=== PATIENT | female | born 1985 | race Caucasian/White ===

== ENCOUNTER 2021-03-02 23:41 | Emergency (ER) | payer OTHER, BC ==
[~2021-03-02] VITALS: Ht 152.4 cm; Wt 63.0 kg
[2021-03-02] MEDS ORDERED: ACETAMINOPHEN 325MG TABLET PO STA (23:53)
[2021-03-02] MEDS ORDERED: MORPHINE SULFATE 4 MG/ML CPJ (NOT FOR IM USE) IV STA (23:53)
[2021-03-02] MEDS ORDERED: ONDANSETRON HCL 4MG/2ML INJ IV STA (23:53)
[2021-03-03] MEDS ORDERED: SODIUM CHLORIDE 0.9% 1,000 ML IV ONE
[2021-03-03 00:34] LABS: BASOPHILS % 0.1 % (0.0-2.0); EOSINOPHILS % 1.3 % (0.0-5.0); HEMATOCRIT. 36.1 % (36.0-48.0); HEMOGLOBIN. 12.4 g/dL (12.0-16.0); LYMPHOCYTES % 31.1 % (20.0-50.0); MEAN CORPUSCULAR HEMOGLOBIN 30.8 pg (28.0-32.0); MEAN CORPUSCULAR VOLUME 89.5 fL (81.0-99.0); MEAN PLATELET VOLUME 9.3 fl (7.4-10.4); MONOCYTES % 5.4 % (2.0-8.0); NEUTROPHILS % 62.1 % (40.0-76.0); PLATELET 224 x1000/uL (130-400); RED BLOOD CELL COUNT 4.04 mill/uL (4.2-5.4); RED CELL DISTRIBUTION WIDTH 13.1 % (11.6-14.6)
[2021-03-03 00:40] LABS: CHLORIDE 107 mEq/L (98-107)
[2021-03-03 00:46] LABS: ETHANOL BLOOD 42 mg/dL
[2021-03-03 00:52] LABS: HCG SCREEN NEGATIVE
[2021-03-03] MEDS ORDERED: HYDROMORPHONE HCL/PF 2MG/ML CPJ IV ONE (01:15)
[2021-03-03] MEDS ORDERED: PROPOFOL 200MG/20ML VIAL IV ONE (02:30)
[2021-03-03] MEDS ORDERED: HYDROMORPHONE HCL/PF 2MG/ML CPJ IV NR (03:30)
[2021-03-03 06:00] VITALS: BP 121/62
== END 2021-03-03 06:10 | disposition short-term general hospital (02) ==
LOC: ER 23:41
DX: S52.591A Other fractures of lower end of right radius, initial encounter for closed fracture (principal); S52.691A Other fracture of lower end of right ulna, initial encounter for closed fracture; S82.52XA Displaced fracture of medial malleolus of left tibia, initial encounter for closed fracture; E87.6 Hypokalemia; Z20.822 Contact with and (suspected) exposure to COVID-19; V43.52XA Car driver injured in collision with other type car in traffic accident, initial encounter; Y93.89 Activity, other specified; Y92.488 Other paved roadways as the place of occurrence of the external cause
CPT/HCPCS: 25605; 29515; 36415; 73080; 73090; 73100; 73610; 80053; 80320; 84703; 85025; 87426; 96361; 96374; 96375; 96376; 99152; 99285; J1170; J2270; J2405; J2704; J7030; G0480